=== PATIENT | male | born 2005 | race Caucasian/White ===

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

== ENCOUNTER → 2023-02-06 | Outpatient (CLI) | payer BC ==
[2023-02-06 16:09] LABS: BASOPHILS # (AUTO) 0.1 10^3/uL (0.0-0.1); BASOPHILS % (AUTO) 1 % (0-10); EOSINOPHILS # (AUTO) 0.2 10^3/uL (0.0-0.3); EOSINOPHILS % (AUTO) 2 % (0-10); HEMATOCRIT 46 % (40-54); HEMOGLOBIN 16.1 g/dL (13.3-17.7); LYMPHOCYTES # (AUTO) 2.5 10^3/uL (1.0-4.0); LYMPHOCYTES % (AUTO) 20 % (12-44); MEAN CORPUSCULAR HEMOGLOBIN 28 pg (25-34); MEAN CORPUSCULAR HGB CONC 35 g/dL (32-36); MEAN CORPUSCULAR VOLUME 81 fL (80-99); MEAN PLATELET VOLUME 8.7 fL (9.0-12.2); MONOCYTES % (AUTO) 8 % (0-12); NEUTROPHILS # (AUTO) 8.4 10^3/uL (1.8-7.8); NEUTROPHILS % (AUTO) 68 % (42-75); PLATELET COUNT 333 10^3/uL (130-400); WHITE BLOOD COUNT 12.4 10^3/uL (4.3-11.0)
[2023-02-06 16:17] LABS: CHLORIDE 105 MMOL/L (98-107); POTASSIUM 3.6 MMOL/L (3.6-5.0); SODIUM 140 MMOL/L (135-145)
[2023-02-06 16:18] LABS: AMYLASE 101 U/L (25-125); CALCIUM 10.3 MG/DL (8.5-10.1)
[2023-02-06 16:19] LABS: GLUCOSE 96 MG/DL (70-105); TOTAL PROTEIN 7.3 GM/DL (6.4-8.2)
[2023-02-06 16:20] LABS: CARBON DIOXIDE 21 MMOL/L (21-32)
[2023-02-06 16:22] LABS: ALKALINE PHOSPHATASE 101 U/L (40-136)
[2023-02-06 16:23] LABS: CREATININE SERUM 0.81 MG/DL (0.60-1.30); GFR ESTIMATED 130
[2023-02-06 16:24] LABS: BUN/CREATININE RATIO 14
[2023-02-06 16:26] LABS: ALANINE AMINOTRANSFERASE 16 U/L (0-55); LIPASE 29 U/L (8-78)
== END ==
LOC: LAB 15:45
PROVIDERS: ATTEND Registered Nurse Critical Care Medicine
DX: A93.8 Other specified arthropod-borne viral fevers (principal); R10.84 Generalized abdominal pain
CPT/HCPCS: 36415; 80053; 82150; 83690; 84443; 85025; 86038; 86039; 86141; 86618; 86666; 86668; 86757

== ENCOUNTER 2023-07-16 20:42 | Emergency (ER) | payer BC ==
[~2023-07-16] VITALS: Ht 172.7 cm; Wt 70.4 kg
[2023-07-16 20:48] VITALS: BP 136/62
--- NOTE | 2023-07-16 21:14 | ED General ---
General Chief Complaint: Laceration Stated Complaint: RIGHT THUMB LAC Nursing Triage Note: CUTTING POTATOES WITH A CHOPPER AND CUT A LEFT THUMB. Source of Information: Patient Exam Limitations: No Limitations (JOSEY JUÁREZ) History of Present Illness Date Seen by Provider: Jul 16, 2023 Time Seen by Provider: 21:00 Initial Comments This is a 18 yo male that presents with an abrasion of his right thumb that happened an hour ago when the patient was slicing potatoes with a slicer. Pt states that he "nicked his thumb" and it hasn't stopped bleeding. Pt tried a band-aid and gauze wrapped with tape which did not stop bleeding. (JOSEY JUÁREZ) Allergies and Home Medications Allergies Coded Allergies: Sulfa (Sulfonamide Antibiotics) (Verified Allergy, Unknown, 01/13/22) Patient Home Medication List Home Medication List Reviewed: Yes (GEMA CALDWELL MD) Review of Systems Review of Systems Constitutional: no symptoms reported EENTM: no symptoms reported Respiratory: no symptoms reported Cardiovascular: no symptoms reported Gastrointestinal: no symptoms reported Genitourinary: no symptoms reported Musculoskeletal: no symptoms reported Skin: no symptoms reported Psychiatric/Neurological: No Symptoms Reported Hematologic/Lymphatic: No Symptoms Reported Immunological/Allergic: no symptoms reported (JOSEY JUÁREZ) Past Hhxxohz-Oxuqet-Ugbilw Hx Past Medical History Surgery/Hospitalization HX: -Bilateral ear tubes - x12 -T/A Surgeries: No (JOSEY JUÁREZ) Physical Exam Vital Signs Vital Signs - First Documented 07/16/23 20:48 Temp 35.7 Pulse 54 Resp 16 B/P (MAP) 136/62 (86) Pulse Ox 98 O2 Delivery Room Air (GEMA CALDWELL MD) Vital Signs Capillary Refill : Less Than 3 Seconds (JOSEY JUÁREZ) Height, Weight, BMI Height: '" Weight: lbs. oz. kg; 23.00 BMI Method: General Appearance: No Apparent Distress, WD/WN Neck: Full Range of Motion, Normal Inspection, Non Tender, Supple Respiratory: Lungs Clear, No Accessory Muscle Use, No Respiratory Distress Cardiovascular: Regular Rate, Rhythm, No Edema, No Murmur Extremity: Other (Abrasion on lateral aspect of interphalangeal joint of left thumb. Bleeding present. No swelling or erythema noted. Tenderness with palpation) Skin: Normal Color, Warm/Dry (JOSEY JUÁREZ) Progress/Results/Core Measures Suspected Sepsis SIRS Temperature: Pulse: 54 Respiratory Rate: 16 Blood Pressure 136 /62 Mean: 86 (JOSEY JUÁREZ) Results/Orders Vital Signs/I&O 07/16/23 20:48 Temp 35.7 Pulse 54 Resp 16 B/P (MAP) 136/62 (86) Pulse Ox 98 O2 Delivery Room Air (GEMA CALDWELL MD) Vital Signs/I&O Capillary Refill : Less Than 3 Seconds (JOSEY JUÁREZ) Blood Pressure Mean: 86 Progress Note : Time: 21:35 Progress Note Patient seen and evaluated by me. Eval includes physical exam - small avulsion of skin off the medial aspect of the left thumb. Actively bleeding. wound cleansed and covered with surgicel. Covered with a gauze bandage and taped in place. WOund is at most 1cm diameter. superficial. No tendon injury or concern for bony injuru - no need for xray. Patient counselled on wound care precautions.Tetanus UTD. (GEMA CALDWELL MD) Departure Impression Primary Impression: Abrasion of thumb, right Qualified Codes: S60.311A - Abrasion of right thumb, initial encounter Disposition: HOME, SELF-CARE Condition: Stable Departure-Patient Inst. Decision time for Depature: 21:40 (GEMA CALDWELL MD) Referrals: NO,LOCAL PHYSICIAN (PCP/Family) Primary Care Physician Patient Instructions: Wound Care (DC) Add. Discharge Instructions: Leave the dressing in place for 24 hours. Then tomorrow night, remove the gauze and soak off the rest of the bandage. Triple antibiotic ointment for 2-3 days and a dry dressing. Wash with a mild soap and water. Return to the ER for re-evaluation if you suspect any infection - redness, swelling, increased pain. Verification and Attestation of Medical Student E/M Service A medical student performed and documented this service in my presence. I reviewed and verified all information documented by the medical student and made modifications to such information, when appropriate. I personally performed the physical exam and medical decision making. Gema Caldwell, Jul 16, 2023,21:42 (GEMA CALDWELL MD) JOSEY JUÁREZ Jul 16, 2023 21:14 GEMA CALDWELL MD Jul 16, 2023 21:42
== END 2023-07-16 21:46 | disposition home or self-care (01) ==
LOC: EDUNIT# 20:42 → ER 20:44
DX: S60.311A Abrasion of right thumb, initial encounter (principal); W27.4XXA Contact with kitchen utensil, initial encounter
CPT/HCPCS: 99281